=== PATIENT | male | born 1965 | race Caucasian/White ===

== ENCOUNTER 2016-05-03 20:04 | Observation (INO) | payer OTHER ==
[~2016-05-03] VITALS: Ht 175.3 cm; Wt 128.6 kg
[~2016-05-03 20:04] MED LIST: FENTANYL 100 MCG/2 ML AMP ONE; GLYCOPYRROLATE 0.2 MG/ML VIAL ONE; LIDOCAINE 2% JELLY GLYDO 6 ML TOPICAL ONE; LIDOCAINE 2% SYR 5 ML IV ONE; NEOSTIGMINE 10 MG/10 ML VIAL ONE; ONDANSETRON 4 MG VIAL ONE; PROPOFOL 20 ML PER ML IV ONE; ROCURONIUM 50 MG VIAL IV ONE; SUCCINYLCHOLINE 20 MG/ML VL ONE
[2016-05-03] MEDS ORDERED: SODIUM CHLORIDE 0.9% 1,000 ML ONE (21:15)
[2016-05-03] MEDS ORDERED: ONDANSETRON 4 MG VIAL ONE (21:15)
[2016-05-03] MEDS ORDERED: DILAUDID 1 MG/ML AMP ONE (21:15)
[2016-05-03] MEDS ORDERED: CEFTRIAXONE 1 GM in SODIUM CHLORIDE 0.9% 50 ML IV ONE (23:05)
[2016-05-03] MEDS ORDERED: SODIUM CHLORIDE 0.45% 1,000 ML IV SCH (23:05)
[2016-05-03] MEDS ORDERED: ONDANSETRON 4 MG VIAL IV PUSH PRN (23:05)
[2016-05-03 23:26] VITALS: BP_SYST 137; BP_SYST 139; RESP 18; TEMP 97.7
[2016-05-03 23:41] VITALS: BMI 41.9
[2016-05-04] VITALS (12 sets, daily range): BP systolic 123–159; RESP 14–27; TEMP 97.4–99.3
[2016-05-04] MEDS: DILAUDID 1 MG/ML AMP IV PRN ×5 (00:35→10:45)
[2016-05-04] MEDS ORDERED: *PINK BRACELET XX ONE (04:10)
[2016-05-04] MEDS ORDERED: CEFTRIAXONE 1 GM in SODIUM CHLORIDE 0.9% 50 ML IV ONE (07:15)
[2016-05-04] MEDS: [UNRECOGNIZED DRUG - OTHER] XX SCH ×2 (08:00→13:11)
[2016-05-04] MEDS ORDERED: MORPHINE 4 MG/ML SYR IV PRN (08:20)
[2016-05-04] MEDS ORDERED: MIDAZOLAM 2 MG/2 ML INJ IV ONE (08:20)
[2016-05-04] MEDS ORDERED: GLYCOPYRROLATE 0.2 MG/ML VIAL IV ONE (08:20)
[2016-05-04] MEDS ORDERED: MEPERIDINE 25 MG/ML IV PRN (08:20)
[2016-05-04] MEDS ORDERED: OXYCODONE 5 MG TAB PO PRN ×3 (08:20→10:20)
[2016-05-04] MEDS ORDERED: MORPHINE 2 MG/ML SYR IV PRN (08:20)
[2016-05-04] MEDS ORDERED: ONDANSETRON 4 MG VIAL IV PRN ×2 (08:20→10:20)
[2016-05-04] MEDS ORDERED: MIDAZOLAM 2 MG/2 ML INJ ONE (16:08)
== END 2016-05-04 14:01 | disposition home or self-care (01) ==
LOC: ENRESERV → ENRESERVTM → ENRESERVDT → ER 20:04 → ENPENDDIS 22:19 → EMR 22:19 → 5THW 23:17
PROVIDERS: ADMIT Urology; ATTEND Urology
CPT/HCPCS: 36415 ×2; 52356; 74000 ×2; 74420 ×2; 80053 ×2; 81001 ×2; 85025 ×2; 87088 ×2; 88300 ×2; 88360; C1758; C1769; C1894; C2617; G0378; J0696; J1170; J2001; J2250; J2405; J2704; J3010